=== PATIENT | male | born 1960 | race Caucasian/White ===

== ENCOUNTER 2016-08-19 10:46 | Emergency (ER) | payer OTHER ==
[~2016-08-19] VITALS: Ht 170.2 cm; Wt 104.5 kg
[~2016-08-19 10:46] MED LIST: ACET500L27 PO; ACYC400T2 PO; DOCU250C2 PO; LISI40TA PO; MS30TCR PO; MULT1CAP33 PO; NORT25CA PO; PRAV40TA PO; SENN8.6C6 PO; ZOLP10TA5 PO
[2016-08-19 10:52] VITALS: BP 144/93; PULSE 104; RESP 18; O2SAT 95
--- NOTE | 2016-08-19 10:59 | ED.REPORT ---
HPI-Extremity Problem Upper Date of Service Aug 19, 2016 ED Provider: Ari Humphrey DO Pt is a 56 year old male with a hx of osteoarthritis, HTN, and hyperlipidemia and bone spurs presenting to the ED complaining of right shoulder pain onset last night, progressively worsening. He was lifting an object out of his truck last night and felt a twinge in his anterior shoulder but the pain didn't start right away. He denies any other symptoms at this time. Nursing Notes Stated Complaint: RT SHOULDER PAIN Chief Complaint: Extremity Trauma Nursing Notes Reviewed: Yes Allergies: Coded Allergies: No Known Allergies (Verified Allergy, Unknown, 08/19/16) Uncoded Allergies: NKA (Allergy, Unknown, 02/19/05) NO (Allergy, Unknown, 02/19/05) No Known Allergies (Allergy, Unknown, 02/19/05) Scheduled Acetaminophen (Acetaminophen) 500 Mg/5 Ml Liquid 1,000 MG PO DAILY Acyclovir (Acyclovir) 400 Mg Tablet 400 MG PO BID Lisinopril (Lisinopril) 40 Mg Tablet 40 MG PO DAILY Morphine Sulfate ER (MS Contin) 30 Mg Tablet.er 30 MG PO TID Multivitamin (Multivitamins) 1 Each Capsule 1 EACH PO DAILY Nortriptyline (Nortriptyline) 25 Mg Capsule 25 MG PO HS Sennosides (Senna) 8.6 Mg Capsule 8.6 MG PO BID Zolpidem (Zolpidem) 10 Mg Tablet 10 MG PO HS Scheduled PRN Docusate Sodium (Docusate Sodium) 250 Mg Capsule 250 MG PO BID PRN PRN For Constipation Miscellaneous Medications Pravastatin (Pravastatin) 40 Mg Tablet 40 MG PO General Time Seen by MD: 10:59 Chief Complaint Shoulder injury right Hx Obtained From: Patient Arrived By: Walk-in Onset Occurred: Yesterday Symptom Duration: Since onset Location: : Shoulder right Quality: Painful Severity: Current: Severe Severity: Maximum: Severe Recent Healthcare: No recent doctor visit, No recent hospitalization Similar Sx Previous: No Past Medical History Past Medical History Chronic back pain Osteoarthritis Bone spurs Pseudogout in left knee Borderline DM Reports: Hyperlipidemia, Hypertension Past Surgical History Knee Reports: Back/neck surgery Smoking History Never Smoker Social History Alcohol Use: Denies alcohol use Drug Use: Denies drug use Ambulatory Status Independent Review of Systems Constitutional: Denies: Weakness - generalized Musculoskeletal: Reports: Joint pain (Right shoulder) Neurologic: Denies: Syncope Complete sys rev & neg: except as marked. Respiratory: Denies: Shortness of breath GI: Denies: Vomiting Physical Exam Initial Vital Signs Vital Signs (First) Date Time Temp Pulse Resp B/P Pulse Ox O2 Delivery O2 Flow Rate FiO2 08/19/16 10:52 36.8 104 18 144/93 95 Room Air Initial VS: Reviewed General/Constitutional: Well-developed, Well-nourished Head / Eyes: Atraumatic, Normocephalic, PERRL ENT: Mucous membranes moist, Conjunctiva normal, No scleral icterus Respiratory: Breath sounds normal, Clear to auscultation, No respiratory distress Cardiovascular: Regular rate & rhythm, Heart sounds normal, Intact distal pulses Abdomen / GI: Soft, Non-tender, No guarding, No rebound, No distention Lower Extremities: Vascular intact, Neuro intact, No swelling, No tenderness Skin: Warm, Dry, No cyanosis Neurologic: Alert, Oriented, Nonfocal Psychiatric: Mood/affect normal, Behavior normal, Normal thought content Upper Extremity / MS: No deformity, Neurologic intact, Vascular intact Right Shoulder: Positive: ROM reduced, Tenderness present... (Moderate to the right trapezius, right pectoralis right deltoid and bicep) Light touch is okay. Pain with active range of motion. Distally neurovascularly intact Re-Eval/Medical Decision Med Decision/Clinical Course Patient presents with a musculoskeletal injury after lifting a heavy bag yesterday. Not suspect that x-rays would be beneficial as there was no significant trauma. He is tender along the trapezius, pectoralis, deltoid and down the bicep. I do have some suspicion that he may have soft tissue injury including ligamentous strain or rotator cuff injury, however I do not see an indication for an MRI emergently in the ER. Additionally, the patient had expressed concern for a local injection however given the diffuse area of muscular injury I do not suspect that a discrete injection would be of any benefit. His medications are reviewed with him at the bedside, he is already on high-dose narcotic medications. I did recommend increasing his meloxicam, he was given a shoulder sling, recommend ice packs. Recommend rest. Patient is discharged. Told to follow-up with his primary care or orthopedist if the pain does not improve for possible MRI. Return in follow-up precautions given. Re-Evaluation/Progress : Time of Eval: 11:30 Patient Status: Condition improved Re-Evaluation/Progress Note: Discussed plan for discharge. Pt understands and agrees. Counseled Regarding: Diagnosis, Lab results, Need for follow-up, When/why to return to ED Discharge & Departure Impression: Primary Impression: Chest wall pain Additional Impression: Right shoulder strain Encounter type: initial encounter Qualified Code: S46.911A - Strain of unspecified muscle, fascia and tendon at shoulder and upper arm level, right arm , initial encounter Disposition: Home Discharge Condition All VS Reviewed: Yes Condition: Improved Additional Instructions: Increase your Meloxicam to 15 mg daily for the next 4 days. Continue your other medications. Use a shoulder sling and ice packs. You may have injured the muscles and ligaments around your shoulder and chest wall. If you continue to have pain and discomfort you should follow-up with either your primary care doctor or an orthopedic doctor in about 1 week. Return to the ER if you develop numbness or weakness in your arm, pain concerning for heart attack, high fever, or other concerns. Referrals: [facility] (PCP) Preeti Walton MD (Family) Miguel Mac Attestation Portions of this note were transcribed by Anny Finch. I, Dr. Humphrey personally performed the history, physical exam and medical decision-making; I reviewed and confirmed the accuracy of the information in the transcribed note. Signed by: Reyna Rust, 08/19/2016 at 1128. copies to: Miguel Mac DO; Preeti Walton MD; [facility] Ari Humphrey DO Aug 19, 2016 10:59 ANNY FINCH Aug 19, 2016 11:07
[2016-08-19 11:32] VITALS: BP 144/93; PULSE 104; RESP 18; O2SAT 95
== END 2016-08-19 11:30 | disposition home or self-care (01) ==
LOC: SED 10:46
DX: R07.89 Other chest pain (principal); S46.911A Strain of unspecified muscle, fascia and tendon at shoulder and upper arm level, right arm, initial encounter; X50.0XXA Overexertion from strenuous movement or load, initial encounter; Y93.9 Activity, unspecified; Y92.9 Unspecified place or not applicable; Y99.8 Other external cause status; I10 Essential (primary) hypertension; E78.5 Hyperlipidemia, unspecified; Z79.899 Other long term (current) drug therapy